=== PATIENT | female | born 1940 ===

== ENCOUNTER 2023-07-19 12:06 | Outpatient (CLI) | payer OTHER | END 2023-07-19 12:09 | disposition home or self-care (01) | LOC: RAD 12:06 | PROVIDERS: ATTEND Orthopaedic Surgery | DX: M25.561 Pain in right knee (principal); M25.562 Pain in left knee ==

== ENCOUNTER 2023-10-02 11:11 | Outpatient (CLI) | payer OTHER | END 2023-10-02 11:16 | disposition home or self-care (01) | LOC: MRI 11:11 | PROVIDERS: ATTEND Orthopaedic Surgery | DX: M25.562 Pain in left knee (principal) | CPT/HCPCS: 73718 ==